=== PATIENT | female | born 1975 | race Caucasian/White ===

== ENCOUNTER 2021-11-07 12:49 | Inpatient (IN) | payer OTHER ==
[2021-11-07 13:55] VITALS: BMI 28.3
[2021-11-07] MEDS ORDERED: LOPERAMIDE HCL 2 MG CAPSULE PO PRN (14:33)
[2021-11-07] MEDS ORDERED: IBUPROFEN 400 MG TABLET (FP) PO PRN (14:33)
[2021-11-07] MEDS ORDERED: NICOTINE 10 MG CARTRIDGE (INHALER) IH PRN (14:33)
[2021-11-07] MEDS ORDERED: ONDANSETRON *ODT* 4 MG TABLET SL PRN (14:33)
[2021-11-07] MEDS ORDERED: BISMUTH SUBSALICYLATE 262 MG/15 ML BTL PO PRN (14:33)
[2021-11-07] MEDS ORDERED: ACETAMINOPHEN 325 MG TABLET (FP) PO PRN ×2 (14:33)
[2021-11-07] MEDS ORDERED: MAGNESIUM HYDROX 2400MG/30ML ORAL SUSPENSION 30 ML CUP PO PRN (14:33)
[2021-11-07] MEDS ORDERED: MAG HYDROX/AL HYDROX/SIMETH 30 ML UNIT-DOSE CUP PO PRN (14:33)
[2021-11-07] MEDS ORDERED: chlordiazePOXIDE HCL 25 MG CAPSULE PO PRN (14:33)
[2021-11-07] MEDS ORDERED: BENZOCAINE/MENTHOL (CHLORASEPTIC ) LOZENGE MM PRN (14:33)
[2021-11-07] MEDS ORDERED: IBUPROFEN 600 MG TABLET (FP) PO PRN (14:33)
[2021-11-07] MEDS ORDERED: MAGNESIUM CITRATE 300 ML BOTTLE PO PRN (14:33)
[2021-11-07] MEDS ORDERED: DICYCLOMINE HCL 10 MG CAPSULE PO PRN (14:33)
[2021-11-07] MEDS ORDERED: chlordiazePOXIDE HCL 25 MG CAPSULE ONE (15:45)
[2021-11-07] MEDS: PRENATAL VITAMINS W/ FOLIC ACID TABLET (FP) PO SCH (15:57)
[2021-11-07] MEDS: hydrOXYzine PAMOATE 25 MG CAPSULE (FP) PO SCH ×2 (17:42→22:20)
[2021-11-07] MEDS: chlordiazePOXIDE HCL 25 MG CAPSULE PO SCH ×2 (17:42→22:20)
[2021-11-07] MEDS: METHOCARBAMOL 500 MG TABLET PO PRN (17:44)
[2021-11-07] MEDS ORDERED: MELATONIN 5 MG TABLETS PO SCH (22:00)
[2021-11-07] MEDS ORDERED: THIAMINE HCL 100 MG TABLET (FP) PO SCH (22:00)
[2021-11-08] MEDS: chlordiazePOXIDE HCL 25 MG CAPSULE PO SCH ×2 (05:24→10:10)
[2021-11-08] MEDS: hydrOXYzine PAMOATE 25 MG CAPSULE (FP) PO SCH ×2 (05:25→10:10)
[2021-11-08 09:20] VITALS: BP 156/96; PULSE 78; TEMP 97.5
[2021-11-08] MEDS: METHOCARBAMOL 500 MG TABLET PO PRN (10:10)
[2021-11-08] MEDS: PRENATAL VITAMINS W/ FOLIC ACID TABLET (FP) PO SCH (10:10)
[2021-11-08 10:34] LABS: CALCIUM 9.1 mg/dL (8.5-10.1)
[2021-11-08 10:36] LABS: ALBUMIN 3.7 g/dl (3.4-5.0); BLOOD UREA NITROGEN 9.4 mg/dL (7-18)
[2021-11-08 10:39] LABS: CREATININE 0.7 mg/dL (0.55-1.3)
[2021-11-08 10:41] LABS: BILIRUBIN,TOTAL 0.3 mg/dL (0.2-1); TOT PROT 7.8 g/dl (6.4-8.2)
[2021-11-08 10:43] LABS: HEMOGLOBIN 12.8 GM/dL (10.7-15.3); MCH 29.9 pg (25.7-33.7); MCHC 32.9 g/dl (32.0-36.0); MEAN CELL VOLUME 91.1 fl (80-96); MEAN PLT VOLUME 8.7 fl (7.5-11.1); PLATELET COUNT 337 10^3/uL (134-434); RBC 4.28 M/mm3 (3.60-5.2); RDW 15.1 % (11.6-15.6); WHITE BLOOD COUNT 7.3 K/mm3 (4.0-10.0)
[2021-11-08] MEDS ORDERED: NALTREXONE HCL 50 MG TABLET PO SCH (11:15)
[2021-11-09] MEDS ORDERED: chlordiazePOXIDE HCL 25 MG CAPSULE PO SCH (05:00)
[2021-11-10] MEDS ORDERED: chlordiazePOXIDE HCL 10 MG CAPSULE PO PRN
[2021-11-10] MEDS ORDERED: chlordiazePOXIDE HCL 10 MG CAPSULE PO SCH (05:00)
[2021-11-11] MEDS ORDERED: chlordiazePOXIDE HCL 10 MG CAPSULE PO SCH (05:00)
[2021-11-12] MEDS ORDERED: chlordiazePOXIDE HCL 10 MG CAPSULE PO ONE (05:00)
== END 2021-11-08 12:25 | disposition left against medical advice (07) | DRG 770 ==
LOC: YASAS 12:49 → Y6N 14:36
PROVIDERS: ADMIT Allergy & Immunology; ATTEND Surgery
PROC: HZ2ZZZZ Detoxification Services for Substance Abuse Treatment (ICD-10-PCS; principal; 2021-11-07)
DX: F10.230 Alcohol dependence with withdrawal, uncomplicated (principal); F41.9 Anxiety disorder, unspecified; E66.9 Obesity, unspecified; Z68.28 Body mass index [BMI] 28.0-28.9, adult; Z28.310 Unvaccinated for COVID-19; Z28.9 Immunization not carried out for unspecified reason
CPT/HCPCS: 36415; 80053; 81025; 85027; 86593; 86780; 87811; 93005; 93010; C9803-CS; U0003; U0005

== ENCOUNTER 2023-12-08 13:38 | Inpatient (IN) | payer OTHER ==
[2023-12-08 14:46] VITALS: BMI 34.3
[2023-12-08] MEDS ORDERED: BISMUTH SUBSALICYLATE 524 MG/30 ML PO PRN (15:49)
[2023-12-08] MEDS ORDERED: BENZONATATE 200 MG CAPSULE PO PRN (15:49)
[2023-12-08] MEDS ORDERED: ONDANSETRON *ODT* 4 MG TABLET SL PRN (15:49)
[2023-12-08] MEDS ORDERED: IBUPROFEN 400 MG TABLET (FP) PO PRN (15:49)
[2023-12-08] MEDS ORDERED: IBUPROFEN 600 MG TABLET (FP) PO PRN (15:49)
[2023-12-08] MEDS ORDERED: NALOXONE HCL 0.4 MG/ML VIAL IM PRN (15:49)
[2023-12-08] MEDS ORDERED: MAG HYDROX/AL HYDROX/SIMETH 30 ML UNIT-DOSE CUP PO PRN (15:49)
[2023-12-08] MEDS ORDERED: NALOXONE (NARCAN) HCL 4 MG/0.1 ML SPRAY NS PRN (15:49)
[2023-12-08] MEDS ORDERED: hydrOXYzine PAMOATE 25 MG CAPSULE (FP) PO PRN (15:49)
[2023-12-08] MEDS ORDERED: guaiFENesin 600 MG TABLET.ER (FP) PO PRN (15:49)
[2023-12-08] MEDS ORDERED: METHOCARBAMOL 500 MG TABLET PO PRN (15:49)
[2023-12-08] MEDS ORDERED: MAGNESIUM HYDROX 2400MG/30ML ORAL SUSPENSION 30 ML CUP PO PRN (15:49)
[2023-12-08] MEDS ORDERED: BENZOCAINE/MENTHOL (CHLORASEPTIC ) LOZENGE MM PRN (15:49)
[2023-12-08] MEDS ORDERED: DICYCLOMINE HCL 10 MG CAPSULE PO PRN (15:49)
[2023-12-08] MEDS ORDERED: ACETAMINOPHEN 325 MG TABLET (FP) PO PRN (15:49)
[2023-12-08] MEDS ORDERED: POLYETHYLENE GLYCOL (HEALTHYLAX) 3350 17 GM PACKET PO PRN (15:49)
[2023-12-08] MEDS ORDERED: LOPERAMIDE HCL 2 MG CAPSULE PO PRN (15:49)
[2023-12-08] MEDS: PRENATAL VITAMINS W/ FOLIC ACID TABLET (FP) PO SCH (18:00)
[2023-12-08] MEDS: chlordiazePOXIDE HCL 25 MG CAPSULE PO SCH (18:00)
[2023-12-08] MEDS: MELATONIN 5 MG TABLETS PO SCH (22:23)
[2023-12-08] MEDS: THIAMINE 100 MG TABLET PO SCH (22:24)
[2023-12-09] MEDS: DEXTROAMPHETAMINE/AMPHETAMINE 10 MG CAP.ER.24H PO SCH (12:06)
[2023-12-09] MEDS: cloNIDine HCL 0.1 MG TABLET PO PRN (17:26)
[2023-12-09] MEDS: chlordiazePOXIDE HCL 25 MG CAPSULE PO PRN (19:28)
[2023-12-10] MEDS: diazePAM 5 MG TABLET PO SCH ×2 (05:00→17:08)
[2023-12-10] MEDS: chlordiazePOXIDE HCL 25 MG CAPSULE PO SCH (05:03)
[2023-12-10] MEDS: levETIRAcetam 500 MG TABLET (FP) PO ONE (12:21)
[2023-12-10 13:29] LABS: HEMATOCRIT 37.7 % (32.4-45.2); HEMOGLOBIN 12.2 GM/dL (10.7-15.3); MCH 29.5 pg (25.7-33.7); MCHC 32.4 g/dl (32.0-36.0); MEAN CELL VOLUME 90.9 fl (80-96); MEAN PLT VOLUME 8.1 fl (7.5-11.1); PLATELET COUNT 201 10^3/uL (134-434); RBC 4.15 M/mm3 (3.60-5.2); RDW 17.5 % (11.6-15.6)
[2023-12-10 13:32] LABS: CHLORIDE 105 mmol/L (98-107); POTASSIUM 3.3 mmol/L (3.5-5.1); SODIUM 140 mmol/L (136-145)
[2023-12-10 13:35] LABS: ALBUMIN 3.1 g/dl (3.4-5.0); ANION GAP 9 mmol/L (4-13); BLOOD UREA NITROGEN 8.1 mg/dL (7-18); CO2 26 mmol/L (21-32); GLUCOSE,RANDOM 105 mg/dL (74-106)
[2023-12-10 13:38] LABS: CREATININE 0.5 mg/dL (0.55-1.3); SGOT/AST 57 U/L (15-37); SGPT/ALT 37 U/L (13-61)
[2023-12-10 13:40] LABS: BILIRUBIN,TOTAL 0.4 mg/dL (0.2-1); TOT PROT 7.3 g/dl (6.4-8.2)
[2023-12-10 13:41] LABS: ALK PHOS 109 U/L (45-117)
[2023-12-10 14:29] LABS: HIV INTERPRETATION NEGATIVE (NEGATIVE)
[2023-12-10] MEDS: SERTRALINE HCL 50 MG TABLET (FP) PO SCH (15:19)
[2023-12-10] MEDS: ARIPiprazole 10 MG TABLET PO SCH (15:19)
[2023-12-10] MEDS: GABAPENTIN 400 MG CAPSULE PO SCH (15:19)
[2023-12-10] MEDS: levETIRAcetam 500 MG TABLET (FP) PO SCH (22:41)
[2023-12-11] MEDS ORDERED: chlordiazePOXIDE HCL 10 MG CAPSULE PO PRN
[2023-12-11] MEDS ORDERED: chlordiazePOXIDE HCL 10 MG CAPSULE PO SCH (05:00)
[2023-12-11] MEDS: diazePAM 5 MG TABLET PO SCH (05:45)
[2023-12-11] MEDS: diazePAM 5 MG TABLET PO PRN (09:48)
[2023-12-12] MEDS ORDERED: chlordiazePOXIDE HCL 10 MG CAPSULE PO SCH (05:00)
[2023-12-12] MEDS: diazePAM 5 MG TABLET PO SCH (05:47)
[2023-12-13] MEDS ORDERED: chlordiazePOXIDE HCL 10 MG CAPSULE PO ONE (05:00)
[2023-12-13] MEDS: diazePAM 5 MG TABLET PO ONE (05:42)
[2023-12-13 09:13] VITALS: BP 124/70; PULSE 82; RESP 18; TEMP 98
== END 2023-12-13 10:55 | disposition home or self-care (01) | DRG 775 ==
LOC: YASAS 13:38 → Y6N 17:36
PROVIDERS: ADMIT Allergy & Immunology; ATTEND Surgery
PROC: HZ2ZZZZ Detoxification Services for Substance Abuse Treatment (ICD-10-PCS; principal; 2023-12-08)
DX: F10.230 Alcohol dependence with withdrawal, uncomplicated (principal); F12.20 Cannabis dependence, uncomplicated; F10.282 Alcohol dependence with alcohol-induced sleep disorder; F10.24 Alcohol dependence with alcohol-induced mood disorder; F32.9 Major depressive disorder, single episode, unspecified; F90.9 Attention-deficit hyperactivity disorder, unspecified type; F43.10 Post-traumatic stress disorder, unspecified; I10 Essential (primary) hypertension
CPT/HCPCS: 36415; 80053; 80305; 80307; 81025; 85027; 86593; 86780; 86803; 87389; 93005; 93010

== ENCOUNTER 2024-07-06 10:02 | Inpatient (IN) | payer OTHER ==
[2024-07-06] MEDS ORDERED: DICYCLOMINE HCL 10 MG CAPSULE PO PRN (10:48)
[2024-07-06] MEDS ORDERED: IBUPROFEN 600 MG TABLET (FP) PO PRN (10:48)
[2024-07-06] MEDS ORDERED: MAGNESIUM HYDROX 2400MG/30ML ORAL SUSPENSION 30 ML CUP PO PRN (10:48)
[2024-07-06] MEDS ORDERED: IBUPROFEN 400 MG TABLET (FP) PO PRN (10:48)
[2024-07-06] MEDS ORDERED: guaiFENesin 600 MG TABLET.ER (FP) PO PRN (10:48)
[2024-07-06] MEDS ORDERED: BENZONATATE 200 MG CAPSULE PO PRN (10:48)
[2024-07-06] MEDS ORDERED: MAG HYDROX/AL HYDROX/SIMETH 30 ML UNIT-DOSE CUP PO PRN (10:48)
[2024-07-06] MEDS ORDERED: NALOXONE (NARCAN) HCL 4 MG/0.1 ML SPRAY NS PRN (10:48)
[2024-07-06] MEDS ORDERED: BISMUTH SUBSALICYLATE 262 MG/15 ML BTL PO PRN (10:48)
[2024-07-06] MEDS ORDERED: POLYETHYLENE GLYCOL (HEALTHYLAX) 3350 17 GM PACKET PO PRN (10:48)
[2024-07-06] MEDS ORDERED: ACETAMINOPHEN 325 MG TABLET (FP) PO PRN (10:48)
[2024-07-06] MEDS ORDERED: BENZOCAINE/MENTHOL (CHLORASEPTIC ) LOZENGE MM PRN (10:48)
[2024-07-06] MEDS ORDERED: LOPERAMIDE HCL 2 MG CAPSULE PO PRN (10:48)
[2024-07-06] MEDS ORDERED: levETIRAcetam 500 MG TABLET (FP) PO ONE (11:29)
[2024-07-06] MEDS ORDERED: diazePAM 5 MG TABLET ONE (11:29)
[2024-07-06] MEDS: levETIRAcetam 500 MG TABLET (FP) PO SCH (11:32)
[2024-07-06] MEDS: diazePAM 5 MG TABLET PO SCH (11:32)
[2024-07-06] MEDS: SERTRALINE HCL 50 MG TABLET (FP) PO SCH (13:00)
[2024-07-06] MEDS: ONDANSETRON *ODT* 4 MG TABLET SL PRN (13:00)
[2024-07-06 13:04] VITALS: BMI 34.3
[2024-07-06] MEDS: METHOCARBAMOL 500 MG TABLET PO PRN (17:20)
[2024-07-06] MEDS: diazePAM 5 MG TABLET PO PRN (19:03)
[2024-07-06] MEDS: MELATONIN 5 MG TABLETS PO SCH (22:10)
[2024-07-06] MEDS: ARIPiprazole 10 MG TABLET PO SCH (22:10)
[2024-07-06] MEDS: THIAMINE 100 MG TABLET PO SCH (22:10)
[2024-07-07] MEDS: PRENATAL VITAMINS W/ FOLIC ACID TABLET (FP) PO SCH (10:12)
[2024-07-07 11:12] LABS: HEMATOCRIT 36.6 % (32.4-45.2); HEMOGLOBIN 11.8 GM/dL (10.7-15.3); MCH 30.5 pg (25.7-33.7); MCHC 32.4 g/dl (32.0-36.0); MEAN CELL VOLUME 94.2 fl (80-96); MEAN PLT VOLUME 8.6 fl (7.5-11.1); PLATELET COUNT 240 10^3/uL (134-434); RBC 3.88 M/mm3 (3.60-5.2); RDW 15.6 % (11.6-15.6); WHITE BLOOD COUNT 8.4 K/mm3 (4.0-10.0)
[2024-07-07 11:16] LABS: POTASSIUM 4.2 mmol/L (3.5-5.1)
[2024-07-07 11:21] LABS: ALBUMIN 3.2 g/dl (3.4-5.0); BLOOD UREA NITROGEN 12.5 mg/dL (7-18); CALCIUM 9.2 mg/dL (8.5-10.1)
[2024-07-07 11:25] LABS: CREATININE 0.7 mg/dL (0.55-1.3)
[2024-07-07 11:26] LABS: BILIRUBIN,TOTAL 0.4 mg/dL (0.2-1); TOT PROT 7.3 g/dl (6.4-8.2)
[2024-07-07] MEDS: LOSARTAN POTASSIUM 25 MG TABLET PO SCH (12:49)
[2024-07-07] MEDS: cloNIDine HCL 0.1 MG TABLET PO PRN (12:52)
[2024-07-07] MEDS: hydrOXYzine PAMOATE 25 MG CAPSULE (FP) PO PRN (12:54)
[2024-07-08] MEDS: diazePAM 5 MG TABLET PO SCH (05:48)
[2024-07-08] MEDS: NALTREXONE HCL 50 MG TABLET PO SCH (11:22)
[2024-07-09] MEDS: diazePAM 5 MG TABLET PO SCH (06:24)
[2024-07-09] MEDS: diazePAM 5 MG TABLET PO PRN (14:32)
[2024-07-10] MEDS: diazePAM 5 MG TABLET PO ONE (06:04)
[2024-07-10 07:21] VITALS: BP 121/70; PULSE 72; RESP 18; TEMP 97.3
== END 2024-07-10 09:27 | disposition home or self-care (01) | DRG 775 ==
LOC: YASAS 10:02 → Y6N 11:45
PROVIDERS: ADMIT Allergy & Immunology; ATTEND Allergy & Immunology
PROC: HZ2ZZZZ Detoxification Services for Substance Abuse Treatment (ICD-10-PCS; principal; 2024-07-06)
DX: F10.230 Alcohol dependence with withdrawal, uncomplicated (principal); F10.282 Alcohol dependence with alcohol-induced sleep disorder; F19.24 Other psychoactive substance dependence with psychoactive substance-induced mood disorder; F10.280 Alcohol dependence with alcohol-induced anxiety disorder; F43.10 Post-traumatic stress disorder, unspecified; F90.9 Attention-deficit hyperactivity disorder, unspecified type; F41.9 Anxiety disorder, unspecified; F32.A Depression, unspecified
CPT/HCPCS: 36415; 80053; 80305; 80307; 81025; 85027; 86593; 86780; Q0162

== ENCOUNTER 2024-08-25 16:29 | Inpatient (IN) | payer OTHER ==
[2024-08-25 16:58] VITALS: BMI 34.3
[2024-08-25] MEDS ORDERED: ACETAMINOPHEN 325 MG TABLET (FP) PO PRN (17:57)
[2024-08-25] MEDS ORDERED: guaiFENesin 600 MG TABLET.ER (FP) PO PRN (17:57)
[2024-08-25] MEDS ORDERED: ONDANSETRON *ODT* 4 MG TABLET SL PRN (17:57)
[2024-08-25] MEDS ORDERED: POLYETHYLENE GLYCOL (HEALTHYLAX) 3350 17 GM PACKET PO PRN (17:57)
[2024-08-25] MEDS ORDERED: NALOXONE (NARCAN) HCL 4 MG/0.1 ML SPRAY NS PRN (17:57)
[2024-08-25] MEDS ORDERED: MAG HYDROX/AL HYDROX/SIMETH 30 ML UNIT-DOSE CUP PO PRN (17:57)
[2024-08-25] MEDS ORDERED: LOPERAMIDE HCL 2 MG CAPSULE PO PRN (17:57)
[2024-08-25] MEDS ORDERED: BENZONATATE 200 MG CAPSULE PO PRN (17:57)
[2024-08-25] MEDS ORDERED: MAGNESIUM HYDROX 2400MG/30ML ORAL SUSPENSION 30 ML CUP PO PRN (17:57)
[2024-08-25] MEDS ORDERED: DICYCLOMINE HCL 10 MG CAPSULE PO PRN (17:57)
[2024-08-25] MEDS ORDERED: BENZOCAINE/MENTHOL (CHLORASEPTIC ) LOZENGE MM PRN (17:57)
[2024-08-25] MEDS ORDERED: IBUPROFEN 600 MG TABLET (FP) PO PRN (17:57)
[2024-08-25] MEDS ORDERED: IBUPROFEN 400 MG TABLET (FP) PO PRN (17:57)
[2024-08-25] MEDS: chlordiazePOXIDE HCL 25 MG CAPSULE PO PRN (20:57)
[2024-08-25] MEDS: METOPROLOL TARTRATE 50 MG TABLET (FP) PO ONE (21:36)
[2024-08-25] MEDS: THIAMINE 100 MG TABLET PO SCH (22:17)
[2024-08-25] MEDS: levETIRAcetam 500 MG TABLET (FP) PO SCH (22:17)
[2024-08-25] MEDS: chlordiazePOXIDE HCL 25 MG CAPSULE PO SCH (22:17)
[2024-08-25] MEDS: MELATONIN 5 MG TABLETS PO SCH (22:17)
[2024-08-26] MEDS: PRENATAL VITAMINS W/ FOLIC ACID TABLET (FP) PO SCH (10:24)
[2024-08-26 17:29] LABS: HEMATOCRIT 40.9 % (34.1-44.9); HEMOGLOBIN 12.5 g/dL (11.2-15.7); MCHC 30.6 g/dl (32.2-35.5); MEAN CELL VOLUME 95.1 fl (79.4-94.8); PLATELET COUNT 142 x10^3/uL (182-369); RDW 14.2 % (12.3-16.6)
[2024-08-26 17:42] LABS: CHLORIDE 107 mmol/L (98-107); POTASSIUM 3.8 mmol/L (3.5-5.1); SODIUM 142 mmol/L (136-145)
[2024-08-26 18:15] LABS: CALCIUM 8.9 mg/dL (8.5-10.1)
[2024-08-26 18:16] LABS: ANION GAP 8 mmol/L (4-13); CO2 26 mmol/L (21-32); GLUCOSE,RANDOM 98 mg/dL (74-106)
[2024-08-26 18:17] LABS: BLOOD UREA NITROGEN 8.6 mg/dL (7-18)
[2024-08-26 18:19] LABS: CREATININE 0.5 mg/dL (0.55-1.3); SGPT/ALT 30 U/L (13-61)
[2024-08-26 18:20] LABS: BILIRUBIN,TOTAL 0.4 mg/dL (0.2-1); SGOT/AST 31 U/L (15-37)
[2024-08-26 18:21] LABS: TOT PROT 6.7 g/dl (6.4-8.2)
[2024-08-26 18:22] LABS: ALK PHOS 101 U/L (45-117)
[2024-08-26] MEDS ORDERED: diazePAM 5 MG TABLET PO PRN (19:05)
[2024-08-26] MEDS: cloNIDine HCL 0.1 MG TABLET PO SCH (22:43)
[2024-08-27] MEDS: chlordiazePOXIDE HCL 25 MG CAPSULE PO SCH (05:52)
[2024-08-27] MEDS: hydrOXYzine PAMOATE 25 MG CAPSULE (FP) PO PRN (08:38)
[2024-08-27] MEDS: BISMUTH SUBSALICYLATE 524 MG/30 ML PO PRN (08:39)
[2024-08-28] MEDS: chlordiazePOXIDE HCL 10 MG CAPSULE PO SCH (05:52)
[2024-08-28] MEDS ORDERED: PATIENT'S OWN MEDICATION (NON-FORMULARY) (Sertraline Hcl [Zoloft] 100 MG Tablet) PO SCH (10:00)
[2024-08-28] MEDS: chlordiazePOXIDE HCL 10 MG CAPSULE PO PRN (14:47)
[2024-08-29] MEDS: chlordiazePOXIDE HCL 10 MG CAPSULE PO SCH (05:59)
[2024-08-29] MEDS: METHOCARBAMOL 500 MG TABLET PO PRN (21:20)
[2024-08-30] MEDS: chlordiazePOXIDE HCL 10 MG CAPSULE PO ONE (05:43)
[2024-08-30 08:51] VITALS: BP 123/89; PULSE 88; RESP 16; TEMP 97.1
== END 2024-08-30 09:26 | disposition home or self-care (01) | DRG 775 ==
LOC: YASAS 16:29 → Y3N 20:09
PROVIDERS: ADMIT Allergy & Immunology; ATTEND Allergy & Immunology
PROC: HZ2ZZZZ Detoxification Services for Substance Abuse Treatment (ICD-10-PCS; principal; 2024-08-25)
DX: F10.230 Alcohol dependence with withdrawal, uncomplicated (principal); F43.10 Post-traumatic stress disorder, unspecified; F41.9 Anxiety disorder, unspecified; F32.A Depression, unspecified; J45.20 Mild intermittent asthma, uncomplicated; Z62.810 Personal history of physical and sexual abuse in childhood
CPT/HCPCS: 36415; 80053; 80305; 80307; 81025; 85027; 86593; 86780; 93005; 93010